=== PATIENT | female | born 1965 | race Caucasian/White ===

== ENCOUNTER → 2025-05-21 13:43 | Outpatient (REF) | payer OTHER, SELFPAY | LOC: HWRCS 13:43 | PROVIDERS: ATTENDING PHYSICIAN Nurse Practitioner Adult Health | DX: R42 Dizziness and giddiness (principal); R00.2 Palpitations | CPT/HCPCS: 93306 ==

== ENCOUNTER → 2025-05-24 12:42 | Outpatient (REF) | payer OTHER, SELFPAY | LOC: HWRAD 12:42 | PROVIDERS: ATTENDING PHYSICIAN Nurse Practitioner Adult Health; REFERRING PHYSICIAN Internal Medicine Endocrinology, Diabetes & Metabolism | DX: R14.0 Abdominal distension (gaseous) (principal); E04.1 Nontoxic single thyroid nodule | CPT/HCPCS: 76536; 76830; 76856 ==

== ENCOUNTER → 2025-06-04 14:06 | Outpatient (REF) | payer OTHER, SELFPAY | LOC: HWRAD 14:06 | PROVIDERS: ATTENDING PHYSICIAN Internal Medicine Rheumatology; FAMILY PHYSICIAN Nurse Practitioner Adult Health | DX: M35.00 Sjogren syndrome, unspecified (principal) | CPT/HCPCS: 71046 ==